=== PATIENT | female | born 1990 | race African-American/Black ===

== ENCOUNTER 2017-04-27 06:20 | Inpatient (IN) ==
[2017-04-27] MEDS ORDERED: ceFAZolin 2,000 MG in PREMIX 1 EACH IV ONE (06:53)
[2017-04-27] MEDS ORDERED: CITRIC ACID/SODIUM CITRATE 30 ML UDCUP PO ONE (06:53)
[2017-04-27] MEDS ORDERED: FAMOTIDINE 20 MG/2 ML VIAL IV ONE (06:53)
[2017-04-27] MEDS: LACTATED RINGERS 1,000 ML IV SCH ×3 (07:14→13:30)
[2017-04-27 07:32] LABS: Basophils % 0.3 % (0.0-0.8); Eosinophils % 0.4 % (0.00-10.9); Hematocrit 33.8 VOL% (35.7-47.0); Hemoglobin 11.6 GM/DL (12.0-16.0); Immature Granulocytes % 0.8 %; Immature Granulocytes Absolute 0.08 #; Lymphocytes # 2.3 10*3/uL (1.4-4.0); Lymphocytes % 23.6 % (21.3-54.2); Mean Corpuscular HGB Conc 34.3 GM/DL (32-36); Mean Corpuscular Hemoglobin 31 PG (27-34); Mean Corpuscular Volume 90.4 FL (87-102); Mean Platelet Volume 12.1 FL (9.6-12.0); Monocytes # 0.8 10*3/uL (0.11-0.8); Monocytes % 8.5 % (1.7-12.7); Neutrophils # 6.5 10*3/uL (1.4-7.4); Neutrophils % 66.4 % (38.7-73.9); Platelet Count 159 T/CUMM (130-400); Red Blood Count 3.74 MC/CUMM (3.8-5.5); Red Cell Distribution Width 12.4 % (9.3-17.3); White Blood Count 9.7 T/CUMM (4-12)
[2017-04-27] MEDS ORDERED: OXYTOCIN 10 UNIT/ML VIAL ONE (07:51)
[2017-04-27 08:03] LABS: Albumin 2.5 G/DL (3.4-5.0); Bilirubin,Total 0.6 MG/DL (0.2-1.0); Calcium 9.1 MG/DL (8.5-10.1); Osmolality,Calculated 269.8 MOS/KG (273-304); Potassium 3.5 MMOL/L (3.5-5.1); Total Protein 7.2 G/DL (6.4-8.3)
[2017-04-27] MEDS ORDERED: OXYTOCIN 10 UNIT/ML VIAL IM ONE (09:00)
[2017-04-27] MEDS ORDERED: OXYTOCIN/LR 30 UNIT/1,000 ML BAG IV ONE (09:00)
--- NOTE | 2017-04-27 09:20 | OB/GYN History & Physical ---
History of Present Illness Chief complaint: In for repeat C/S due to previous C/S x 1 History of present illness: Ms. Pollard is a 26 year old female 2 para 1 living 1. Her KUNAL is 2014, for an estimated gestational age of 39 weeks. The patient presents for elective repeat section due to previous section 1. The risk and benefits have been thoroughly discussed with this patient and significant other, plan of care has been discussed with Dr. Gupta and all parties are in agreement plan. Ms. Pollard had a previous section due to distress at 40 weeks. She had a 7 lbs. 3 oz. viable male at that time. The patient received her care at the [facility], she received routine care other than entering care late she had an uneventful course of . labs: She is B+, rubella is immune, RPR is nonreactive, hepatitis B is negative, HIV is negative, GBS culture positive. Review of systems is negative with exception of above. Home Medications Medication Instructions Recorded Confirmed Type Pnv No.95/Ferrous Fum/Folic AC 1 each PO DAILY 10/16/16 04/27/17 History [ Tablet] Allergies Allergy/AdvReac Type Severity Reaction Status Date / Time Iodinated Contrast Media - Allergy ANAPHYLAXIS Verified 09/30/16 15:12 Oral and [Iodinated Contrast Media - IV Dye] 12 point system: reviewed and no additional remarkable complaints except as stated Medical,Surgical,& Family Hx - Medical History Medical History: noncontributory Cardio: No history of: Hypertension Neurology: No history of: Seizures Endocrine: No history of: Diabetes Mellitus (IDDM), Diabetes Mellitus (NIDDM) Respiratory: History of: Bronchitis No history of: Asthma, Pneumonia Renal: No history of: Renal Problems Gastrointestinal: No history of: Gastrointestinal Bleed, Liver Problems, GI Problems Musculoskeletal: No history of: Amputation Reproductive: History of: Sexually Transmitted Disorders (gonnerhea) No history of: Ectopic , Complication - Surgical History Neurologic Surgeries: Patient denies: Neurologic Surgery Reproductive Surgeries: Surgical HX of;: Section (X1), Dilation and Curettage (05/18/16), Gynecologic Surgery - Family History Family History: Reports;: Family Cancer (mgm), Family Diabetes (mgm), Family Heart Disease, Family Hypertension (mgm), Family Stroke (mgf) Denies;: Family Anesthesia Reaction, Family Hematology, Family Psychiatric Problems, Additional Family History - Social History Smoking Status: Former smoker Frequency of Alcohol Use: None Type of Drug Use: None (Patient states she quit when she found out she was .), Marijuana Marital Status: Single Lives 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:: 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 - Constitutional Vitals: Vital Signs Temp Pulse Resp BP Pulse Ox 04/27/17 06:46 97.9 F 79 18 137/70 98 General appearance: no acute distress - Antepartum / Post Antepartum Exam Cervix - Dilatation: Deferred Breast: bilateral: normal Abdomen obstetrics: Present: bowel sounds normal Vagina: Present: normal moisture Uterus exam: Present: enlarged (Gravid) - Respiratory Respiratory exam: Present: clear to auscultation bilaterally - Cardiovascular Cardiovascular exam: Present: regular rate and rhythm - GI/Abdominal GI/Abdominal exam: Present: normal bowel sounds, soft - Extremities Exam Extremities exam: Present: normal inspection - Neurological Exam Neurological exam: Present: alert, oriented X3 - Psychiatric Psychiatric exam: Present: normal affect, normal mood - Skin Skin exam: Present: normal color, warm Assessment and Plan (1) Previous section Status: Acute Assessment and plan: Admit IV fluids Obtain consent for repeat section per Dr. Gupta Anticipate delivery of a viable infant Current Visit: Yes Results - Labs CBC & BMP: 04/27/17 07:16 04/27/17 07:16
[2017-04-27 09:41] LABS: Cord Venous Blood HCO3 21.4 MMOL/L; Cord Venous Blood PCO2 41.8 MMHG; Cord Venous Blood PO2 35.7
[2017-04-27] MEDS ORDERED: MORPHINE 10 MG/10 ML VIAL ONE (09:43)
[2017-04-27] MEDS ORDERED: MIDAZOLAM 2 MG/2 ML VIAL ONE (09:43)
--- NOTE | 2017-04-27 09:45 | Operative Note ---
Date of procedure: 04/27/17 Procedure: Preoperative diagnosis: Elective sterilization, repeat section Postoperative diagnosis: Same Anesthesia:[] Regional anesthesia Estimated blood loss: [] 350 Surgeon: Dr. Gupta Findings: [] Female , time of was 9:00, 6 lbs. 7 oz., Apgars 9 at 1 minute and 9 at 5 minutes, delivered the placenta was at 902 Complications: None Procedure: Low transverse section bilateral tubal ligation The patient was taken to the operating suite heart tones were obtained prior to and after regional anesthesia was obtained. She was placed in supine position her abdomen was prepped and draped in usual manner for major abdominal surgery. Through an abdominal incision the skin, subcutaneous, fascial layer and peritoneal the abdomen was entered. The bladder flap was created and a low transverse incision was made.. Fluid was clear and normal amount X, Apgars, the placenta was delivered and sent to lab for further evaluation. Injected with intrauterine Pitocin. The first layer of the uterus was closed with #1 Vicryl in a continuous locking manner. Close to imbricate the first layer with #1 Vicryl. The peritoneum was approximated with #2-0 Vicryl.[Bilateral tubal ligation, the fallopian tubes were grasped with a Auburn clamp, the avascular reason mesosalpinx was perforated, the proximal distal length of the tube was ligated, the segment in between was excised and cauterized.] All the last sponges and instruments were accounted for -2.) #2-0 Vicryl. Fascia was approximated with #0-0 Maxon.. The skin was approximated with suzy. She tolerated procedure well and was taken to recovery room in stable condition. Surgeon / Physician: Mikel Gupta Results - Labs CBC & BMP: 04/27/17 07:16 04/27/17 07:16 Discharge Plan - Discharge Medications No Action Pnv No.95/Ferrous Fum/Folic AC [ Tablet] 1 each PO DAILY - Follow Up or Referral - Forms/Instructions
[2017-04-27] MEDS ORDERED: hydrOXYzine HCL 25 MG/1 ML VIAL IM PRN (09:54)
[2017-04-27] MEDS ORDERED: ONDANSETRON 4 MG/2 ML VIAL IV PRN ×2 (09:54→12:15)
[2017-04-27] MEDS ORDERED: diphenhydrAMINE 50 MG/1 ML VIAL IV PRN (09:54)
[2017-04-27] MEDS ORDERED: HYDROmorphone 2 MG/1 ML VIAL IV PRN (09:54)
[2017-04-27] MEDS ORDERED: LACTATED RINGERS 1,000 ML IV SCH (10:00)
[2017-04-27] MEDS ORDERED: OXYTOCIN/LR 20 UNIT/1,000 ML BAG IV ONE ×2 (10:03→12:15)
[2017-04-27] MEDS ORDERED: RHO(D) IMMUNE GLOBULIN 300 MCG SYRINGE IM ONE (12:15)
[2017-04-27] MEDS ORDERED: MAGNESIUM HYDROXIDE SUSP 30 ML UDCUP PO PRN (12:15)
[2017-04-27] MEDS ORDERED: ACETAMINOPHEN 325 MG TABLET PO PRN (12:15)
[2017-04-27] MEDS ORDERED: IBUPROFEN 800 MG TABLET PO PRN (12:15)
[2017-04-27 19:10] LABS: Basophils % 0.1 % (0.0-0.8); Hematocrit 28.9 VOL% (35.7-47.0); Hemoglobin 9.8 GM/DL (12.0-16.0); Immature Granulocytes % 0.8 %; Immature Granulocytes Absolute 0.12 #; Lymphocytes % 6.8 % (21.3-54.2); Mean Corpuscular HGB Conc 33.9 GM/DL (32-36); Mean Corpuscular Hemoglobin 31 PG (27-34); Mean Corpuscular Volume 91.2 FL (87-102); Mean Platelet Volume 11.7 FL (9.6-12.0); Monocytes # 0.9 10*3/uL (0.11-0.8); Monocytes % 5.7 % (1.7-12.7); Neutrophils # 12.9 10*3/uL (1.4-7.4); Neutrophils % 86.6 % (38.7-73.9); Platelet Count 143 T/CUMM (130-400); Red Blood Count 3.17 MC/CUMM (3.8-5.5); Red Cell Distribution Width 12.2 % (9.3-17.3); White Blood Count 14.9 T/CUMM (4-12)
[2017-04-28] MEDS: LACTATED RINGERS 1,000 ML IV SCH (01:27)
[2017-04-28] MEDS: DOCUSATE SODIUM 100 MG CAPSULE PO SCH ×3 (02:53→21:28)
[2017-04-28 06:48] LABS: Basophils % 0.2 % (0.0-0.8); Eosinophils % 0.1 % (0.00-10.9); Hematocrit 28.1 VOL% (35.7-47.0); Hemoglobin 9.6 GM/DL (12.0-16.0); Immature Granulocytes % 0.7 %; Immature Granulocytes Absolute 0.09 #; Lymphocytes % 8.2 % (21.3-54.2); Mean Corpuscular HGB Conc 34.2 GM/DL (32-36); Mean Corpuscular Hemoglobin 31 PG (27-34); Mean Corpuscular Volume 90.4 FL (87-102); Mean Platelet Volume 12.1 FL (9.6-12.0); Monocytes # 0.9 10*3/uL (0.11-0.8); Monocytes % 7.3 % (1.7-12.7); Neutrophils # 10.6 10*3/uL (1.4-7.4); Neutrophils % 83.5 % (38.7-73.9); Platelet Count 138 T/CUMM (130-400); Red Blood Count 3.11 MC/CUMM (3.8-5.5); Red Cell Distribution Width 12.6 % (9.3-17.3); White Blood Count 12.7 T/CUMM (4-12)
--- NOTE | 2017-04-28 09:32 | OB/GYN Progress Note ---
Assessment and Plan (1) Previous section Status: Acute Assessment and plan: Admit IV fluids Obtain consent for repeat section per Dr. 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 Bonding well with . Exam EVENTS ASSOCIATE - Constitutional Vitals: Vital Signs Temp Pulse Resp BP Pulse Ox 04/28/17 09:00 20 04/28/17 08:00 18 04/28/17 07:44 97.8 F 94 H 18 102/53 98 04/28/17 06:41 18 04/28/17 05:00 18 04/28/17 04:00 97.5 F L 69 18 104/67 99 04/28/17 03:00 18 04/28/17 02:00 18 04/28/17 00:00 97.6 F 92 H 18 108/72 98 04/27/17 20:00 97.2 F L 84 18 117/68 99 04/27/17 19:45 84 18 04/27/17 19:00 20 04/27/17 18:00 20 04/27/17 16:40 20 04/27/17 16:00 20 04/27/17 15:58 97.8 F 84 20 115/71 98 04/27/17 15:00 20 04/27/17 14:30 96 H 20 112/62 98 04/27/17 14:00 20 04/27/17 13:30 74 18 109/67 98 04/27/17 13:00 20 04/27/17 12:30 88 20 102/64 98 04/27/17 12:00 84 20 127/70 98 04/27/17 11:30 96.9 F L 84 20 127/76 98 General appearance: no acute distress - Antepartum / Post Post Exam Breast: bilateral: normal Abdomen obstetrics: Present: bowel sounds normal Vagina: Present: normal moisture, discharge (light lochia rubra) Uterus exam: Present: enlarged (Fundus firm midline) - Gyencological / Post Surgical Post Surgical Exam Lungs: bilateral: normal Chest: Normal S1, Normal S2 Extremities EVENTS ASSOCIATE: Present: normal Abdomen obstetrics progress note: Present: normal appearance Incision OB: Present: normal, intact - Head Head exam: Present: normal inspection - Respiratory Respiratory exam: Present: clear to auscultation bilaterally - Cardiovascular Cardiovascular exam: Present: regular rate and rhythm - GI/Abdominal GI/Abdominal exam: Present: normal bowel sounds, soft - Extremities Exam Extremities exam: Present: normal inspection - Neurological Exam Neurological exam: Present: alert, oriented X3 - Psychiatric Psychiatric exam: Present: normal affect, normal mood - Skin Skin exam: Present: normal color, warm Results - Labs CBC & BMP: 04/28/17 06:17 04/27/17 07:16
[2017-04-28] MEDS: SIMETHICONE CHEW 80 MG TABLET PO PRN ×2 (09:35→23:19)
[2017-04-28] MEDS: MULTIVITAMIN (PRENATAL) TABLET PO SCH (09:35)
[2017-04-28] MEDS: FERROUS SULFATE 325 MG TABLET PO SCH ×2 (10:31→21:28)
--- NOTE | 2017-04-28 14:21 | Pathology Report from [facility] ---
[facility] [place]ESSION # : [id number] PATIENT NAME : Jazmine Pollard ORDERING DR : HAYLIE JUÁREZ MD CLINICAL HX: Repeat section @ 39 weeks gestation, desires sterilization POST-OP DX: Same SPECIMEN INFO: #1 Right fallopian tube segment #2 left fallopian tube segment GROSS DESCRIPTION: The specimen is received fresh in two parts labeled JAZMINE POLLARD. Part #1 labeled RIGHT FALLOPIAN TUBE consists of a pink-perez segment of unfimbriated fallopian tube measuring 1.5 x 0.6 cm. Manager R D section submitted in cassette #1.Part #2 labeled LEFT FALLOPIAN TUBE consists of a 1.6 x 0.6 cm hyperemic perez segment of unfimbriated fallopian tube. A construction sales representative segment submitted in cassette #2. DIAGNOSIS FOR JAZMINE POLLARD: #1 Completely transected segment of fallopian tube, right.#2 Completely transected segment of fallopian tube, left. COLLECTED DATE: 04/27/2017 [facility] REPORT DATE: 04/28/2017 ELECTRONICALLY SIGNED BY: Gilberto Ribera M.D. 04/28/2017 - 10:35:18 PATRICE
[2017-04-29 07:30] VITALS: BP 105/68
[2017-04-29] MEDS: MULTIVITAMIN (PRENATAL) TABLET PO SCH (08:48)
[2017-04-29] MEDS: FERROUS SULFATE 325 MG TABLET PO SCH (08:48)
[2017-04-29] MEDS: DOCUSATE SODIUM 100 MG CAPSULE PO SCH (08:48)
--- NOTE | 2017-04-29 11:01 | Discharge Summary ---
Hospital Course - Hospital Course Hospital Course: Ms. Pollard presented to the labor department for repeat section due to previous section. She delivered a viable with no complications. She has followed a normal postoperative course with no complications. Her bowel sounds are positive. Her incision is well approximated without signs of infection. She is voiding without difficulty. Her vital signs and lab values are stable. Her fundus is firm and midline. She is bonding well with her . She has a desire to be discharged home today. She received a bilateral tubal ligation for contraception. She will be discharged home with prescriptions for pain and follow-up appointment in our office. Diagnosis - Discharge Diagnosis (1) Previous section Status: Acute Specialty Discharge - Follow Up or Referrals Follow up with: Mikel Gupta MD [Physician] - 2 Weeks Discharge Plan - Discharge Data Disposition: Disch To Home/Self Care Condition at Discharge: Stable Discharge Diet: advance to your usual diet, regular diet Activity: increase activity as tolerated, no lifting, no prolonged standing Hygiene: may shower Weight Bearing at Discharge: partial weight bearing Driving: not until seen by doctor Contact your physician if you experience:: fever over 101, pain uncontrolled by pain medications - Discharge Medications New Ibuprofen Tab [Motrin Tab] 800 mg PO Q8H PRN #30 tablet PRN Reason: Pain Severe (8-10) Ferrous Sulfate Tab [Feosol Original Tab] 325 mg PO BID #60 tablet HYDROcodone/ACETAMIN 5-325 [Olpe 5-325] 2 tablet PO Q6H PRN #30 tablet PRN Reason: Pain Severe (8-10) No Action Pnv No.95/Ferrous Fum/Folic AC [ Tablet] 1 each PO DAILY - Follow Up or Referral - Forms/Instructions Exam - Constitutional Vitals: Period Temp Pulse Resp BP Sys/Potter Pulse Ox Last 24 Hr 7 F-98.6 F 90-112 18-20 103-128/68-80 96-99 General appearance: no acute distress - Head Head exam: Present: normal inspection - Respiratory Respiratory exam: Present: clear to auscultation bilaterally - Cardiovascular Cardiovascular exam: Present: regular rate and rhythm - GI/Abdominal GI/Abdominal exam: Present: normal bowel sounds, soft - Extremities Exam Extremities exam: Present: normal inspection - Neurological Exam Neurological exam: Present: alert, oriented X3 - Psychiatric Psychiatric exam: Present: normal affect, normal mood - Skin Skin exam: Present: normal color, warm Discharge Results Procedures and tests throughout hospitalization: Pending Orders 04/27/17 10:26 Urinalysis Stat 04/28/17 06:17 HIV Antigen/Antibody Combo* Routine Hepatitis B Surface Antibody* Routine Rubella Ab, IgG, S Routine DS: Provider Date of admission: 04/27/17 06:53 Primary care physician: . No PCP Attending physician on admission: Mikel Gupta MD Consults: 04/27/17 06:53 Consult to Anesthesiology [CONS] Routine Consulting Provider: Reason for Anesthesiology: Pre-op Clearance 04/27/17 12:15 Consult to Bakery Decorator [CONS] Routine Consult Bakery Decorator: Breast Feeding Discharging clinician: Asha Valdez CNM Expected date of discharge: 04/29/17
[2017-04-29] MEDS ORDERED: DIPH/TET/ACEL PERT BOOSTER VACCINE 0.5 ML VIAL IM ONE (12:06)
[2017-04-29 12:26] LABS: HIV Antigen/Antibody Result Nonreactive (Nonreactive); Hepatitis B Surface Ab Result Negative
== END 2017-04-29 12:45 | disposition home or self-care (01) | DRG 540 ==
LOC: N.LDOUT 06:20 → N.LD 06:23 → N.OB 08:54
PROVIDERS: ADMIT Obstetrics & Gynecology; ATTEND Obstetrics & Gynecology
PROC: LDCSECT (ICD-10-PCS; 2017-04-27 08:00)